=== PATIENT | female | born 1950 ===

== ENCOUNTER 2017-06-01 07:27 | Day surgery (SDC) | payer MEDICARE, OTHER ==
[2017-06-01 08:16] VITALS: BMI 29.3
[2017-06-01] MEDS ORDERED: Propofol 10 mg/ml Inj (20 ML) ONE (08:40)
--- NOTE | 2017-06-01 08:41 | CP.SDSHP ---
Same Day Surgery H & P - History Proposed Procedure: COLONSCOPY Pre-Op Diagnosis: SEE NOTES - Previous Medical/Surgical History Neuro: Backaches Misc: Other Pain: 4.Moderate Pain - Allergies Allergies: Allergies codeine Allergy (Verified 11/15/16 14:07) cortisone Allergy (Verified 11/15/16 14:07) morphine Allergy (Verified 11/15/16 14:07) - Physical Exam General Appearance: N Vital Signs: Vital Signs 06/01/17 07:58 Temperature 97.3 F L Pulse Rate 72 Respiratory 18 Rate Blood Pressure 122/77 O2 Sat by Pulse 96 Oximetry Mental Status: Alert & Oriented x3 Neuro: WNL Heart: WNL Lungs: WNL GI: Other - {Optional Preform as Required} Breast: WNL Abdomen: Other Rectal: Other Integument: WNL : WNL Ortho: Other ENT: WNL - Impression Pt. Evaluated Today:Candidate for Anesthesia & Procedure: Yes - Date & Time Time: 08:41 Short Stay Discharge - Short Stay Discharge Admitting Diagnosis/Reason for Visit: CHANGE OF BOWEL MOVEMENT Disposition: HOME/ ROUTINE
[2017-06-01] MEDS ORDERED: Belladonna-Phenobarbital PO ONE (09:20)
[2017-06-01 09:38] VITALS: TEMP 97.7
[2017-06-01 09:46] VITALS: RESP 12; O2SAT 100
[2017-06-01 09:47] VITALS: BP 111/66; PULSE 64
== END 2017-06-01 10:55 | disposition home or self-care (01) ==
LOC: C.ENDO 07:27
PROVIDERS: ATTEND Specialist
DX: K57.90 Diverticulosis of intestine, part unspecified, without perforation or abscess without bleeding (principal); K64.8 Other hemorrhoids; K64.4 Residual hemorrhoidal skin tags
CPT/HCPCS: 45380; 88305; J2704

== ENCOUNTER 2018-08-19 08:10 | Emergency (ER) | payer MEDICARE, OTHER ==
[2018-08-19 08:18] VITALS: BMI 29.7
--- NOTE | 2018-08-19 08:22 | C.PDOC ---
History Of Present Illness 68 years old female presents to ED for complaints of new onset left greater than right lower quadrant pain that began yesterday. Patient describes pain as constant. Denies nausea, vomiting, or fever. Past Surgical Hx of . Time Seen by Provider: 08/19/18 08:19 Chief Complaint (Nursing): Abdominal Pain History Per: Patient History/Exam Limitations: no limitations Onset/Duration Of Symptoms: Hrs, Sudden Onset, Persistent Current Symptoms Are (Timing): Still Present Location Of Pain/Discomfort: LLQ Radiation Of Pain To:: None Associated Symptoms: denies: Fever, Chills, Nausea, Vomiting, Diarrhea Exacerbating Factors: None Alleviating Factors: None Last Bowel Movement: Today Recent travel outside of the [place]: No Abnormal Vaginal Bleeding: No Past Medical History Reviewed: Historical Data, Nursing Documentation, Vital Signs Vital Signs: Last Vital Signs Temp 98.5 F 08/19/18 08:14 Pulse 92 H 08/19/18 08:14 Resp 18 08/19/18 08:14 BP 127/79 08/19/18 08:14 Pulse Ox 96 08/19/18 08:14 - Medical History PMH: Fractures (LEFT KNEE), Hypercholesterolemia, Osteoporosis Surgical History: Endoscopy Family History: States: Unknown Family Hx - Social History Hx Tobacco Use: No Hx Alcohol Use: No Hx Substance Use: No - Immunization History Hx Tetanus Toxoid Vaccination: No Hx Influenza Vaccination: No Hx Pneumococcal Vaccination: No Review Of Systems Constitutional: Negative for: Fever, Chills Gastrointestinal: Positive for: Abdominal Pain (Left greater than right lower abdominal pain ). Negative for: Nausea, Vomiting, Diarrhea Skin: Negative for: Rash Neurological: Negative for: Weakness, Numbness Physical Exam - Physical Exam Appears: Non-toxic, No Acute Distress Skin: Normal Color, Warm, Dry, No Rash Head: Atraumatic Eye(s): bilateral: Normal Inspection, PERRL, EOMI Oral Mucosa: Moist Neck: Supple Chest: Symmetrical, No Tenderness Cardiovascular: Rhythm Regular Respiratory: Normal Breath Sounds, No Rales, No Rhonchi, No Wheezing Gastrointestinal/Abdominal: Soft (Obese ), Tenderness (LLQ ), No Distention, No Guarding, No Rebound Extremity: Normal ROM Extremity: Bilateral: Atraumatic, Normal Color And Temperature, Normal ROM Neurological/Psych: Oriented x3, Normal Speech Gait: Steady ED Course And Treatment - Laboratory Results Result Diagrams: 12/02/18 09:03 08/19/18 09:03 O2 Sat by Pulse Oximetry: 96 (RA) Pulse Ox Interpretation: Normal - CT Scan/US Abdomen/Pelvis CT Other Rad Studies (CT/US): Read By Radiologist, Radiology Report Reviewed CT/US Interpretation: CT abdomen and pelvis. HISTORY: Lower quadrant abdominal pain. COMPARISON: 03/08/2013. Technique: Multiple contiguous axial images were performed through the abdomen and pelvis with the use of intravenous contrast. Subsequently, sagittal and coronal reformatted images were obtained. This CT exam was performed using one or more of the following dose reduction techniques: Automated exposure control, adjustment of the mA and/or kV according to patient size, and/or use of iterative reconstruction technique. Findings: Sigmoid diverticulosis. In addition, there is focal thickening of the sigmoid colon at its proximal to mid aspects with associated adjacent fluid and fat stranding. These findings are suggestive for a focal diverticulitis versus focal colitis. Post treatment interval follow-up may be helpful to ensure resolution and exclude additional etiology and/or underlying colonic lesion. Clinical correlation. Scattered atelectasis at the lung bases. No pleural or pericardial effusion. Liver and gallbladder are preserved. Spleen is preserved. Splenule. Adrenal glands are preserved. Pancreas is preserved. Upper abdominal bowel is preserved. Right kidney: No calculi or hydronephrosis. Left Kidney: No calculi or hydronephrosis. Urinary bladder is preserved. Fecal retention in the right hemicolon. Appendix measures 6 millimeters, within normal limits. Few shotty para-aortic and inguinal lymph nodes. Few shotty mesenteric lymph nodes. Degenerative changes in the spine and bilateral hips. Soft tissue calcifications within the buttock regions. Mild scoliotic curvature of the spine. Impression: Sigmoid diverticulosis. In addition, there is focal thickening of the sigmoid colon at its proximal to mid aspects with associated adjacent fluid and fat stranding. These findings are suggestive for a focal diverticulitis versus focal colitis. Post treatment interval follow-up may be helpful to ensure resolution and exclude additional etiology and/or underlying colonic lesion. Clinical correlation. Progress - Data Reviewed Data Reviewed: Lab, Diagnostic imaging, Old records Medical Decision Making Medical Decision Making: Plan: * IV Fluids * Toradol * CT Abdomen/Pelvis * Urinalysis Disposition Counseled Patient/Family Regarding: Studies Performed, Diagnosis, Need For Followup, Rx Given - Disposition Referrals: YOUR,PMD [Other] Disposition: HOME/ ROUTINE Disposition Time: 11:42 Condition: IMPROVED Prescriptions: Ciprofloxacin [Cipro] 1 tab PO BID #14 tab Dicyclomine [Bentyl] 20 mg PO TID PRN #12 tab PRN Reason: Pain Metronidazole [Flagyl] 500 mg PO BID #14 tab Instructions: Diverticulitis (DC) Forms: [employer] (Slovak), Work Excuse Print Language: URDU - Clinical Impression Clinical Impression: Abdominal pain, Diverticulitis - Scribe Statement The provider has reviewed the documentation as recorded by the Tieraibkaela Forbes All medical record entries made by the Tieraibkaela were at my direction and personally dictated by me. I have reviewed the chart and agree that the record accurately reflects my personal performance of the history, physical exam, medi marilia decision making, and the department course for this patient. I have also personally directed, reviewed, and agree with the discharge instructions and disposition.
[2018-08-19 08:41] LABS: SQUAMOUS EPITHIAL 3 /hpf (0-5); URINE BACTERIA RARE (<OCC); URINE BILIRUBIN NEGATIVE (NEGATIVE); URINE BLOOD 1+ (NEGATIVE); URINE CLARITY Clear (Clear); URINE COLOR Yellow (YELLOW); URINE GLUCOSE (UA) NORMAL (Normal); URINE LEUKOCYTE ESTERASE NEG Leu/uL (Negative); URINE PROTEIN NEGATIVE (NEGATIVE); URINE UROBILINOGEN NORMAL mg/dL (0.2-1.0)
[2018-08-19] MEDS ORDERED: Sodium Chloride 0.9% 1,000 ML IV ONE (08:49)
[2018-08-19] MEDS ORDERED: Iohexol 240 (50 ml) PO STA (08:49)
[2018-08-19] MEDS ORDERED: LIDOCAINE IV STA (08:50)
[2018-08-19] MEDS ORDERED: SODIUM CHLORIDE 0.9% IV STA (08:50)
[2018-08-19] MEDS ORDERED: Iohexol 240 (50 ml) ONE (08:56)
[2018-08-19 09:06] LABS: BASO % 0.4 % (0.0-2.0); EOS # 0.4 K/uL (0.0-0.7); HEMOGLOBIN 13.2 g/dL (11.0-16.0); LYMPH % 24.2 % (20.0-40.0); MEAN CELL VOLUME 86.4 fL (81.0-99.0); MEAN CORPUSCULAR HEMOGLOBIN 29.3 pg (27.0-31.0); MEAN PLATELET VOLUME 9.3 fL (7.2-11.7); MONO # 0.6 K/uL (0.0-0.8); MONO % 7.1 % (0.0-10.0); NEUT # 5.2 K/uL (1.8-7.0); NEUT % 63.3 % (50.0-75.0); NRBC % 0.1 % (0.0-2.0); RBC 4.49 Mil/uL (3.80-5.20); RED CELL DISTRIBUTION WIDTH 13.4 % (11.5-14.5); WHITE BLOOD COUNT 8.1 K/uL (4.8-10.8)
[2018-08-19] MEDS ORDERED: Sodium Chloride 0.9% 1,000 ML ONE (09:07)
[2018-08-19 09:17] LABS: ALB/GLOB RATIO 1.3 (1.0-2.1); ALBUMIN 3.7 g/dL (3.5-5.0); ALT/SGPT 18 U/L (9-52); AST/SGOT 14 U/L (14-36); BLOOD UREA NITROGEN 12 mg/dL (7-17); CALCIUM 8.5 mg/dl (8.6-10.4); GFR NON-AFRICAN AMERICAN > 60; LIPASE 89 U/L (23-300)
[2018-08-19] MEDS ORDERED: Iodixanol 320 MG/ML 100 ML BOTTLE IV ONE (09:55)
--- NOTE | 2018-08-19 11:15 | CT ---
CT abdomen and pelvis HISTORY: Lower quadrant abdominal pain. COMPARISON: 03/08/2013 Technique: Multiple contiguous axial images were performed through the abdomen and pelvis with the use of intravenous contrast. Subsequently, sagittal and coronal reformatted images were obtained. This CT exam was performed using one or more of the following dose reduction techniques: Automated exposure control, adjustment of the mA and/or kV according to patient size, and/or use of iterative reconstruction technique. Findings: Sigmoid diverticulosis. In addition, there is focal thickening of the sigmoid colon at its proximal to mid aspects with associated adjacent fluid and fat stranding. These findings are suggestive for a focal diverticulitis versus focal colitis. Post treatment interval follow-up may be helpful to ensure resolution and exclude additional etiology and/or underlying colonic lesion. Clinical correlation. Scattered atelectasis at the lung bases. No pleural or pericardial effusion. Liver and gallbladder are preserved. Spleen is preserved. Splenule. Adrenal glands are preserved. Pancreas is preserved. Upper abdominal bowel is preserved Right kidney: No calculi or hydronephrosis. Left Kidney: No calculi or hydronephrosis. Urinary bladder is preserved. Fecal retention in the right hemicolon. Appendix measures 6 millimeters, within normal limits. Few shotty para-aortic and inguinal lymph nodes. Few shotty mesenteric lymph nodes. Degenerative changes in the spine and bilateral hips. Soft tissue calcifications within the buttock regions. Mild scoliotic curvature of the spine. Impression: Sigmoid diverticulosis. In addition, there is focal thickening of the sigmoid colon at its proximal to mid aspects with associated adjacent fluid and fat stranding. These findings are suggestive for a focal diverticulitis versus focal colitis. Post treatment interval follow-up may be helpful to ensure resolution and exclude additional etiology and/or underlying colonic lesion. Clinical correlation.
[2018-08-19 11:52] VITALS: BP 124/64; PULSE 74; RESP 16; TEMP 99.1
[2018-08-19 12:13] VITALS: O2SAT 96
== END 2018-08-19 11:57 | disposition home or self-care (01) ==
LOC: C.ER 08:10
DX: K57.92 Diverticulitis of intestine, part unspecified, without perforation or abscess without bleeding (principal)
CPT/HCPCS: 74177; 80053; 81001; 83690; 85025; 96361; 96374; 99285; J1885; J2001; J7030; Q9966; Q9967

== ENCOUNTER 2018-09-27 06:59 | Day surgery (SDC) | payer MEDICARE, OTHER ==
[2018-09-27 07:28] VITALS: BMI 23.8
--- NOTE | 2018-09-27 08:33 | CP.SDSHP ---
Same Day Surgery H & P - History Proposed Procedure: COLONSCOPY Pre-Op Diagnosis: SEE NOTES - Previous Medical/Surgical History Misc: Other Pain: 4.Moderate Pain - Allergies Allergies: Allergies codeine Allergy (Verified 08/19/18 08:13) cortisone Allergy (Verified 08/19/18 08:13) morphine Allergy (Verified 08/19/18 08:13) - Physical Exam General Appearance: N Vital Signs: Vital Signs 09/27/18 07:30 Temperature 97.2 F L Pulse Rate 80 Respiratory 17 Rate Blood Pressure 118/84 O2 Sat by Pulse 97 Oximetry Mental Status: Alert & Oriented x3 Neuro: WNL Heart: WNL Lungs: WNL GI: Other - {Optional Preform as Required} Breast: WNL Abdomen: Other Rectal: Other Integument: WNL : WNL Ortho: WNL ENT: WNL - Impression Pt. Evaluated Today:Candidate for Anesthesia & Procedure: Yes - Date & Time Time: 08:33 Short Stay Discharge - Short Stay Discharge Admitting Diagnosis/Reason for Visit: CHANGE IN BOWEL HABIT Disposition: HOME/ ROUTINE
[2018-09-27] MEDS ORDERED: Lactated Ringer's 1,000 ML IV ONE (08:35)
[2018-09-27] MEDS ORDERED: Propofol 10 mg/ml Inj (20 ML) ONE (08:36)
[2018-09-27] MEDS ORDERED: Belladonna-Phenobarbital PO ONE (09:15)
[2018-09-27 09:17] VITALS: TEMP 97.8
[2018-09-27 09:19] VITALS: O2SAT 100
[2018-09-27 10:42] VITALS: BP 111/53; PULSE 99; RESP 13
== END 2018-09-27 10:30 | disposition home or self-care (01) ==
LOC: C.ENDO 06:59
PROVIDERS: ATTEND Specialist
DX: R19.4 Change in bowel habit (principal); R93.5 Abnormal findings on diagnostic imaging of other abdominal regions, including retroperitoneum; K57.30 Diverticulosis of large intestine without perforation or abscess without bleeding; K64.8 Other hemorrhoids
CPT/HCPCS: 45380; 88305; J2704; J7120